=== PATIENT | male | born 2000 | race Caucasian/White ===

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

== ENCOUNTER 2021-05-28 22:09 | Emergency (ER) | payer MEDICAID ==
[~2021-05-28] VITALS: Ht 172.7 cm; Wt 56.7 kg
[2021-05-28 22:32] VITALS: BP_SYST 103
--- NOTE | 2021-05-28 22:35 | NUR ---
Patient triaged and placed in waiting room. VSS and patient appears in no acute distress at this time. Accompanied by self, awaiting available bed, and MD notified of need for MSE.
[2021-05-28] MEDS ORDERED: IMI50 PO (22:40)
[2021-05-28] MEDS ORDERED: IBUP-1969 PO (23:27)
[2021-05-28] MEDS ORDERED: PRED20TA PO (23:27)
[2021-05-28] MEDS ORDERED: KETOROLAC TROMETHAMINE 60 MG/2 ML VIAL IM ONE (23:30)
--- NOTE | 2021-05-28 23:50 | NUR ---
Patient is awake and alert, C/O sore throat for last 3 weeks but worse for past 3 days. No other complaints at this time. VSS. Pain stated 05/16. Will continue to monitor.
--- NOTE | 2021-05-28 23:50 | NUR ---
Patient ambulatory to bed [facility] for evaluation and treatment
--- NOTE | 2021-05-28 23:55 | NUR ---
ER MD ANGELO AT BEDSIDE EXAMINING PATIENT.
[2021-05-29] VITALS: BP_SYST 103
--- NOTE | 2021-05-29 | NUR ---
Patient given written and verbal discharge instructions and verbalizes understanding. ER MD ANGELO discussed with patient the results and treatment provided. Patient in stable condition. ID arm band removed. Rx of IBUPROFEN AND PREDNISONE given. Patient educated on pain management and to follow up with PMD. Pain Scale 2/10. Opportunity for questions provided and answered. Medication side effect fact sheet provided.
== END 2021-05-29 | disposition home or self-care (01) ==
LOC: SED 22:09
DX: J02.9 Acute pharyngitis, unspecified (principal); J45.909 Unspecified asthma, uncomplicated; R51.9 Headache, unspecified; Z79.899 Other long term (current) drug therapy
CPT/HCPCS: 96372; 99283; J1885

== ENCOUNTER 2021-12-09 10:59 | Emergency (ER) | payer MEDICAID ==
[~2021-12-09] VITALS: Ht 172.7 cm; Wt 56.7 kg
[~2021-12-09 10:59] MED LIST: IBUP-1969 PO; IMI50 PO; PRED20TA PO
[2021-12-09 11:16] VITALS: BP_SYST 116
[2021-12-09] MEDS ORDERED: IBUPROFEN 600 MG TABLET PO ONE (11:45)
[2021-12-09] MEDS ORDERED: IBUP-1969 PO (12:37)
[2021-12-09 13:01] VITALS: BP_SYST 115
== END 2021-12-09 13:01 | disposition home or self-care (01) ==
LOC: SED 10:59
DX: S60.221A Contusion of right hand, initial encounter (principal); J45.909 Unspecified asthma, uncomplicated; Z79.1 Long term (current) use of non-steroidal anti-inflammatories (NSAID); Z79.52 Long term (current) use of systemic steroids; W01.198A Fall on same level from slipping, tripping and stumbling with subsequent striking against other object, initial encounter; Y93.89 Activity, other specified; Y92.89 Other specified places as the place of occurrence of the external cause; Y99.8 Other external cause status
CPT/HCPCS: 99283